=== PATIENT | female | born 1985 | race Caucasian/White ===

== ENCOUNTER 2016-08-03 12:40 | Inpatient (IN) | payer MEDICAID ==
[~2016-08-03] VITALS: Ht 165.1 cm; Wt 79.0 kg
[~2016-08-03 12:40] MED LIST: KETOROLAC TROMETHAMINE 60 MG/2 ML (IM) VIAL IM ONE; LACTATED RINGER'S 1000 ML INJ 1,000 ML IV ONE; NEOSTIGMINE 3 MG/3 ML SYR IV ONE; ONDANSETRON HCL 4 MG/2 ML VIAL IV PUSH ONE; PROPOFOL 200 MG/20 ML AMP IV ONE
[2016-08-03 12:42] VITALS: BP 133/81; PULSE 108; RESP 17; TEMP 99.5; O2SAT 97
[2016-08-03] MEDS ORDERED: SODIUM CHLOR 0.9% 1000 ML INJ 1,000 ML IV SCH (12:52)
--- NOTE | 2016-08-03 12:55 | PD ---
HPI Chief Complaint: Oral / Dental Pain or Problem Time Seen by Provider: 12:55 Travel History International Travel<30 days: No Contact w/Intl Traveler<30days: No Traveled to known affect area: No History of Present Illness HPI 30-year-old female presents to the emergency department for evaluation of swelling and pain to left lower jaw for one day. The patient states that last week she had a dental abscess from a cracked tooth in her left lower molars and was placed on amoxicillin. States that the swelling had improved with the antibiotics until this morning when she woke up the entire left side of her jaw and underneath her chin was swollen and painful. States that she had an appointment with her dentist today to have the tooth removed and when she went to the dentist she was told that she needed immediate oral surgery and to come to the emergency department. The patient denies any fever, chills, nausea, vomiting, difficulty swallowing, difficulty breathing. She states she is having trouble opening her mouth. Denies , she has a Mirena. No other complaints. PFSH Past Medical History Medical History: Denies Significant Hx Diminished Hearing: No Tetanus Vaccination: Unknown Influenza Vaccination: No ?: Not LMP: 8 YRS AGO Past Surgical History Surgical History: No Previous Surgery Social History Alcohol Use: No Tobacco Use: No Substance Use: No Allergies-Medications (Allergen,Severity, Reaction): Coded Allergies: No Known Allergies (Unverified , 08/03/16) Reported Meds & Prescriptions Reported Meds & Active Scripts Active No Active Prescriptions or Reported Medications Review of Systems Except as stated in HPI: all other systems reviewed are Neg Physical Exam Narrative GENERAL: Well-nourished and well-developed pleasant female patient in no acute distress. SKIN: Warm and dry. HEAD: Normocephalic and atraumatic. EYES: No injection, drainage, or hyphema noted. PERRLA. EOMI. ENT: No nasal drainage noted. Oropharynx is clear, no excessive drooling, airway is patent. DENTAL: Dental caries to tooth #19. There is significant submandibular and sublingual swelling on the left side and some swelling to the submental space. Positive trismus. NECK: Supple and the trachea is midline. CARDIOVASCULAR: Regular rate and rhythm. RESPIRATORY: Breath sounds are equal bilaterally with no accessory muscle use, wheezing, rhonchi, or crackles. GASTROINTESTINAL: Abdomen is soft, non-tender, and nondistended. MUSCULOSKELETAL: No obvious deformities, swelling, cyanosis, or ecchymosis is present throughout the upper and lower extremities. Patient has full range of motion without any signs of neurovascular compromise. NEUROLOGICAL: Awake, alert, and oriented. Normal speech and gait. Cranial nerves are grossly intact. Data Data Last Documented VS Vital Signs Date Time Temp Pulse Resp B/P Pulse Ox O2 Delivery O2 Flow Rate FiO2 08/03/16 14:19 88 14 114/65 97 Room Air 08/03/16 12:42 99.5 Orders Complete Blood Count With Diff (08/03/16 12:52) Comprehensive Metabolic Panel (08/03/16 12:52) Lactic Acid (08/03/16 12:52) Prothrombin Time / Inr (Pt) (08/03/16 12:52) Act Partial Throm Time (Ptt) (08/03/16 12:52) Iv Access Insert/Monitor (08/03/16 12:52) Ecg Monitoring (08/03/16 12:52) Oximetry (08/03/16 12:52) Morphine Inj (Morphine Inj) (08/03/16 13:00) Ondansetron Inj (Zofran Inj) (08/03/16 13:00) Sodium Chlor 0.9% 1000 Ml Inj (Ns 1000 M (08/03/16 12:52) Sodium Chloride 0.9% Flush (Ns Flush) (08/03/16 13:00) Ed Urine Pregnancytest Poc (08/03/16 12:52) Ct Soft Tiss Neck W Iv Cont (08/03/16 12:52) Clindamycin Inj (Cleocin Inj) (08/03/16 13:00) Dexamethasone Inj (Decadron Inj) (08/03/16 13:00) C-Reactive Protein (Crp) (08/03/16 12:55) Westergren Sedimentation Rate (08/03/16 12:55) Blood Culture (08/03/16 13:06) Iohexol 350 Inj (Omnipaque 350 Inj) (08/03/16 15:28) NPO (08/03/16 16:12) Admit Order (Ed Use Only) (08/03/16 16:25) Labs Laboratory Tests Test 08/03/16 13:00 White Blood Count 18.5 TH/MM3 Red Blood Count 5.05 MIL/MM3 Hemoglobin 14.8 GM/DL Hematocrit 42.7 % Mean Corpuscular Volume 84.5 FL Mean Corpuscular Hemoglobin 29.2 PG Mean Corpuscular Hemoglobin 34.6 % Concent Red Cell Distribution Width 12.5 % Platelet Count 354 TH/MM3 Mean Platelet Volume 7.5 FL Neutrophils (%) (Auto) 84.2 % Lymphocytes (%) (Auto) 9.4 % Monocytes (%) (Auto) 4.6 % Eosinophils (%) (Auto) 1.4 % Basophils (%) (Auto) 0.4 % Neutrophils # (Auto) 15.6 TH/MM3 Lymphocytes # (Auto) 1.7 TH/MM3 Monocytes # (Auto) 0.9 TH/MM3 Eosinophils # (Auto) 0.3 TH/MM3 Basophils # (Auto) 0.1 TH/MM3 CBC Comment DIFF FINAL Differential Comment Erythrocyte Sedimentation Rate 3 mm/hr Prothrombin Time 11.7 SEC Prothromb Time International 1.1 RATIO Ratio Activated Partial 30.8 SEC Thromboplast Time Sodium Level 137 MEQ/L Potassium Level 4.1 MEQ/L Chloride Level 105 MEQ/L Carbon Dioxide Level 21.5 MEQ/L Anion Gap 11 MEQ/L Blood Urea Nitrogen 8 MG/DL Creatinine 0.65 MG/DL Estimat Glomerular Filtration 108 ML/MIN Rate Random Glucose 83 MG/DL Lactic Acid Level 0.8 mmol/L Calcium Level 9.3 MG/DL Total Bilirubin 0.8 MG/DL Aspartate Amino Transf 17 U/L (AST/SGOT) Alanine Aminotransferase 26 U/L (ALT/SGPT) Alkaline Phosphatase 78 U/L C-Reactive Protein 14.00 MG/DL Total Protein 8.4 GM/DL Albumin 4.1 GM/DL [facility] Medical Decision Making Medical Screen Exam Complete: Yes Emergency Medical Condition: Yes Differential Diagnosis Ludwigs angina versus dental abscess versus dental caries Narrative Course 30-year-old female presents to the emergency department for evaluation of dental infection and facial swelling. Patient's temperature is 99.5F and she is slightly tachycardic with a heart rate of 108 bpm. Otherwise vital signs within normal limits. On physical examination she has what appears to be early Fermin angina, she is not having any airway compromise at this time. IV access is obtained, labs have been drawn and sent. CT soft tissue of the neck has been ordered and is pending. Patient is administered IV fluids, Decadron 10 mg IV, and the mycin 600 mg IV, morphine 4 mg IV and Zofran 4 mg IV. CBC shows elevated white blood cell count of 18.5, otherwise unremarkable. CMP is unremarkable. Sedimentation rate is unremarkable. Lactic acid is unremarkable. CRP is elevated at 14.00. Coags are unremarkable. CT soft tissue of the neck with contrast shows soft tissue swelling in the left submandibular region without an obvious abscess. This does track along the lingual airspace and involves both sides of the mandible. I spoke with maxillofacial surgeon on-call who requested patient be kept nothing by mouth and admitted to medicine service. I discussed the case with my attending physician Dr. Rios who is aware of the patients history, physical examination findings, and treatment plan. Physician Communication Physician Communication I spoke with Dr. Mccann maxillofacial surgeon who requests patient be kept nothing by mouth and admitted to medicine service. I spoke with Dr. Lincoln [facility] who agrees to admit the patient to her service. Diagnosis Primary Impression: Fermin's angina Admitting Information Admitting Physician Requests: Admit Scripts No Active Prescriptions or Reported Meds Ophelia Fisher Aug 03, 2016 12:55
[2016-08-03] MEDS ORDERED: DEXAMETHASONE SOD PHOS 20 MG/5 ML VIAL IV PUSH ONE (13:00)
[2016-08-03] MEDS ORDERED: ONDANSETRON HCL 4 MG/2 ML VIAL IVP ONE (13:00)
[2016-08-03] MEDS ORDERED: MORPHINE SULFATE 4 MG/ML INJ IV PUSH ONE (13:00)
[2016-08-03] MEDS ORDERED: SODIUM CHLORIDE 0.9% FLUSH 10 ML FLUSH IV FLUSH PRN ×2 (13:00→22:45)
[2016-08-03] MEDS ORDERED: CLINDAMYCIN INJ 600 MG in SODIUM CHLORIDE 0.9% INJ 100 ML IV ONE (13:00)
[2016-08-03 13:04] VITALS: O2SAT 98
[2016-08-03 13:37] LABS: AUTOMATED NEUTROPHIL # 15.6 TH/MM3 (1.8-7.7); BASOPHIL # 0.1 TH/MM3 (0-0.2); BASOPHIL % 0.4 % (0.0-2.0); EOSINOPHIL # 0.3 TH/MM3 (0-0.4); EOSINOPHIL % 1.4 % (0.0-4.0); HEMATOCRIT 42.7 % (35.0-46.0); HEMO FLAGS DIFF FINAL; LYMPH % 9.4 % (9.0-44.0); LYMPHOCYTE # 1.7 TH/MM3 (1.0-4.8); MEAN CELL VOLUME 84.5 FL (80.0-100.0); MEAN CORPUSCULAR HEMOGLOBIN 29.2 PG (27.0-34.0); MEAN CORPUSCULAR HGB CONC 34.6 % (32.0-36.0); MONO % 4.6 % (0.0-8.0); NEUT % 84.2 % (16.0-70.0); PLATELET COUNT 354 TH/MM3 (150-450); RED BLOOD COUNT 5.05 MIL/MM3 (4.00-5.30); RED CELL DISTRIBUTION WIDTH 12.5 % (11.6-17.2); WHITE BLOOD COUNT 18.5 TH/MM3 (4.0-11.0)
[2016-08-03 13:48] LABS: APTT (PATIENT) 30.8 SEC (24.3-30.1); INTERNATIONAL NORMALIZED RATIO 1.1 RATIO; PROTHROMBIN TIME - PATIENT 11.7 SEC (9.8-11.6)
[2016-08-03 14:00] LABS: ANION GAP 11 MEQ/L (5-15); AST (GOT) 17 U/L (15-37); BICARBONATE 21.5 MEQ/L (21.0-32.0); BLOOD UREA NITROGEN 8 MG/DL (7-18); CHLORIDE 105 MEQ/L (98-107); GLOMERULAR FILTRATION RATE 108 ML/MIN (>89); POTASSIUM 4.1 MEQ/L (3.5-5.1); SODIUM (NA) 137 MEQ/L (136-145)
[2016-08-03 14:04] LABS: ALKALINE PHOSPHATASE 78 U/L (45-117); ALT (GPT) 26 U/L (10-53); TOTAL BILIRUBIN ADULT 0.8 MG/DL (0.2-1.0)
[2016-08-03 14:19] VITALS: BP 114/65; PULSE 88; RESP 14; O2SAT 97
[2016-08-03] MEDS ORDERED: IOHEXOL 350 MG/ML 10 ML VIAL (for RAD DIAG) IV ONE (15:28)
--- NOTE | 2016-08-03 15:46 | RADRPT ---
EXAM DATE/TIME: 08/03/2016 14:39 [place] COMPARISON: No previous studies available for comparison. INDICATIONS : Left neck swelling. IV CONTRAST: 100 cc Omnipaque 350 (iohexol) IV RADIATION DOSE: 12.42 CTDIvol (mGy) MEDICAL HISTORY : None SURGICAL HISTORY : None. ENCOUNTER: Initial ACUITY: 1 day PAIN SCALE: 4/10 LOCATION: Left neck TECHNIQUE: Volumetric scanning of the neck was performed. Using automated exposure control and adjustment of th e mA and/or kV according to patient size, radiation dose was kept as low as reasonably achievable to obtain optimal diagnostic quality images. DICOM format image data is available electronically for r eview and comparison. FINDINGS: There is soft tissue swelling in the left submandibular region. Submandibular gland is prominent wit h marked induration around the gland and along the undersurface of the mandible that would be consistent with an inflammatory process without abscess. There are nonspecific submental lymph nodes identified. The l argest of these measures 1.2 cm. There is no fluid evident to suggest an abscess. I do not see any calcifications to suggest a stone. I do not see an obvious dental abscess. Correlation is suggested. Submandibular swelling associated with what looks like the submandibular gland and its duct with nons pecific adenopathy present. This does track along the lingual airspace and involves both sides of the mandible. CONCLUSION: Inflammatory changes on the left as described above. Site of origin may be the submandibular gland. I do not see an obvious dental abscess. Amor Doherty MD FACR on August 03, 2016 at 15:35 Board Certified Radiologist. This report was verified electronically.
[2016-08-03 16:39] VITALS: BP 116/78; PULSE 85; RESP 14; TEMP 99.2; O2SAT 97
--- NOTE | 2016-08-03 17:09 | HHI.HP ---
HPI [facility] Primary Care Physician No Primary Care Physician Admission Diagnosis Fermin's Angina Diagnoses: Chief Complaint: Left jaw pain Travel History International Travel<30 Days: No Contact w/Intl Traveler <30 Da: No Traveled to Known Affected Are: No Sepsis Criteria SIRS Criteria (2 or more): Temp > 100.9 or < 96.8, Heart rate over 90, WBC > 11210, < 4000 or > 10% bands Sepsis Criteria (SIRS+source): Infect source susp/known Criteria Outcome: Meets sepsis criteria History of Present Illness Patient is a very pleasant 30-year-old female who denies any chronic medical conditions who about 10 days prior to admission complained of left lower jaw pain associated with swelling and some low-grade fever. Patient was seen in the emergency room where she was prescribed antibiotic steroids and some pain meds and was discharged to follow-up with a dentist. She was seen by a dentist and was prescribed pain medications and the plan was to do dental extraction of tooth #19. T Patient and mom states rapid increasing in swelling and pain progressively improved not barely can open mouth. Patient denies any fever but does complain of some feverish sensation and chills. On follow-up today with worsening exam by the dentist and was sent here for evaluation by oral maxillofacial surgery and hence this admission. Review of Systems Constitutional: DENIES: Fever, Weight loss, Chills, Change in appetite Eyes: DENIES: Blurred vision, Double Vision Ears, nose, mouth, throat: DENIES: Tinnitus, Ear Pain, Epistaxis, Odynophagia Respiratory: DENIES: Cough, Hemoptysis, Sputum production, Shortness of breath Cardiovascular: DENIES: Chest pain, Palpitations, Dyspnea on Exertion, Lower Extremity Edema, Orthopnea Gastrointestinal: DENIES: Black stools, Bloody stools, Difficulty Swallowing, Anorexia Genitourinary: DENIES: Urgency, Hematuria, Vaginal discharge Musculoskeletal: DENIES: Joint pain, Stiffness Integumentary: DENIES: Pruritus Hematologic/lymphatic: DENIES: Bruising Immunologic/allergic: DENIES: Urticaria Neurologic: DENIES: Headache, Speech Problems, Tremor Psychiatric: DENIES: Suicidal Ideation, Homicidal Ideation Past Family Social History Past Medical History No significant past medical history Past Surgical History No major surgeries Reported Medications Amoxicillin twice a Lortab when necessary for pain Allergies: Coded Allergies: No Known Allergies (Unverified , 08/03/16) Family History Noncontributory Social History Denies smoking alcohol or substance abuse Physical Exam Vital Signs Vital Signs Date Time Temp Pulse Resp B/P Pulse Ox O2 Delivery O2 Flow Rate FiO2 08/03/16 16:39 99.2 85 14 116/78 97 Room Air 08/03/16 14:19 88 14 114/65 97 Room Air 08/03/16 14:17 14 08/03/16 13:04 98 Room Air 08/03/16 12:42 99.5 108 17 133/81 97 Physical Exam GENERAL: This is a well-nourished, well-developed patient, in no apparent distress. SKIN: No rashes, ecchymoses or lesions. Cool and dry. HEAD: Atraumatic. Normocephalic. No temporal or scalp tenderness. EYES: Pupils equal round and reactive. Extraocular motions intact. No scleral icterus. No injection or drainage. ENT: Nose without bleeding, marked swelling and infiltration of the left mandibular to submandibular area. No left tragal tenderness. NECK: Trachea midline. No JVD. Positive posterior cervical small lymphadenopathies. Supple, nontender, no meningeal signs. CARDIOVASCULAR: Regular rhythm without murmurs, gallops, or rubs. RESPIRATORY: Clear to auscultation. Breath sounds equal bilaterally. No wheezes , rales, or rhonchi. GASTROINTESTINAL: Abdomen soft, non-tender, nondistended. No hepato-splenomegaly , or palpable masses. No guarding. MUSCULOSKELETAL: Extremities without clubbing, cyanosis, or edema. No joint tenderness, effusion, or edema noted. No calf tenderness. Negative Homans sign bilaterally. NEUROLOGICAL: Awake and alert. Cranial nerves II through XII intact. Motor and sensory grossly within normal limits. Five out of 5 muscle strength in all muscle groups. Normal speech. Laboratory Laboratory Tests Test 08/03/16 13:00 White Blood Count 18.5 Red Blood Count 5.05 Hemoglobin 14.8 Hematocrit 42.7 Mean Corpuscular Volume 84.5 Mean Corpuscular Hemoglobin 29.2 Mean Corpuscular Hemoglobin 34.6 Concent Red Cell Distribution Width 12.5 Platelet Count 354 Mean Platelet Volume 7.5 Neutrophils (%) (Auto) 84.2 Lymphocytes (%) (Auto) 9.4 Monocytes (%) (Auto) 4.6 Eosinophils (%) (Auto) 1.4 Basophils (%) (Auto) 0.4 Neutrophils # (Auto) 15.6 Lymphocytes # (Auto) 1.7 Monocytes # (Auto) 0.9 Eosinophils # (Auto) 0.3 Basophils # (Auto) 0.1 CBC Comment DIFF FINAL Differential Comment Erythrocyte Sedimentation Rate 3 Prothrombin Time 11.7 Prothromb Time International 1.1 Ratio Activated Partial 30.8 Thromboplast Time Sodium Level 137 Potassium Level 4.1 Chloride Level 105 Carbon Dioxide Level 21.5 Anion Gap 11 Blood Urea Nitrogen 8 Creatinine 0.65 Estimat Glomerular Filtration 108 Rate Random Glucose 83 Lactic Acid Level 0.8 Calcium Level 9.3 Total Bilirubin 0.8 Aspartate Amino Transf 17 (AST/SGOT) Alanine Aminotransferase 26 (ALT/SGPT) Alkaline Phosphatase 78 C-Reactive Protein 14.00 Total Protein 8.4 Albumin 4.1 Date/Time Procedure Status Source Growth 08/03/16 13:15 Aerobic Blood Culture Received Blood Peripheral Pending 08/03/16 13:15 Anaerobic Blood Culture Received Blood Peripheral Pending Result Diagram: 08/03/16 1300 08/03/16 1300 Imaging Last Impressions Neck CT 08/03/16 1252 Signed Impressions: Service Date/Time: Wednesday, August 03, 2016 14:39 - CONCLUSION: Inflammatory changes on the left as described above. Site of origin may be the submandibular gland. I do not see an obvious dental abscess. Amor Doherty MD FACR Septic Shock Reassessment Heart: Regular rate and rhythm Lungs: Clear Skin: Warm Peripheral Pulses: Bounding Right Radial Bounding Left Radial Bounding Right Popliteal Bounding Left Popliteal Bounding Right Dorsalis Pedis Bounding Left Dorsalis Pedis Bounding Right Posterior Tibial Bounding Left Posterior Tibial Capillary Refill: Brisk Assessment and Plan Assessment and Plan 30-year-old female presenting with tachycardia and low-grade fever and leukocytosis Sepsis secondary to left mandibular/submandibular abscess secondary to infected tooth #19 Nothing by mouth. Start IV fluids Oral maxillofacial surgery consulted- for OR now Started on IV clindamycin. 600 mg IV q 8 received x 1 IV styeroids. Will defer to OMFS for further steroids post op will need ICU admission after surgery for close monitoring. IV morphine when necessary for pain. d/w patient, Mom and Dr. Mccann Discussed Condition With Patient and mother at bedside Physician Certification 2 Midnight Certification Type: Admission for Inpatient Services Order for Inpatient Services The services are ordered in accordance with Medicare regulations or non- Medicare payer requirements, as applicable. In the case of services not specified as inpatient-only, they are appropriately provided as inpatient services in accordance with the 2-midnight benchmark. Estimated LOS (days): 3 days is the estimated time the patient will need to remain in the hospital, assuming treatment plan goals are met and no additional complications. Post-Hospital Plan: Home Luke Lincoln MD Aug 03, 2016 17:09
[2016-08-03] MEDS ORDERED: MICROFIBRILLAR COLLAGEN HEMOSTAT 1 GM PKT ONE (17:26)
[2016-08-03] MEDS ORDERED: CHLORHEXIDINE GLUCONATE 0.12% 15 ML CUP ONE (17:26)
[2016-08-03] MEDS ORDERED: BACITRACIN TOP OINT 15 GM TUBE ONE (17:26)
[2016-08-03] MEDS ORDERED: LIDOCAINE 1%/EPINEPHrine 1:100,000 SOLN 20 ML VIAL ONE (17:32)
[2016-08-03] MEDS ORDERED: SUGAMMADEX SODIUM 200 MG/2 ML VIAL IV PUSH ONE ×2 (18:32)
[2016-08-03] MEDS ORDERED: MIDAZOLAM HCL 2 MG/2 ML VIAL ONE (18:55)
[2016-08-03] MEDS ORDERED: fentaNYL CITRATE 250 MCG/5 ML AMP ONE (18:55)
[2016-08-03] MEDS ORDERED: BUPIVACAINE/EPINEPHRINE 0.5% PF 10 ML VIAL INFIL ONE (19:35)
--- NOTE | 2016-08-03 20:07 | HHI.PR ---
Immediate Post Op Note Procedure Date: Aug 03, 2016 Pre Op Diagnosis: decayed tooth #19 left neck multispace infection/abscess, submandibular, masseteric and sub lingual Post Op Diagnosis: sangita Surgeon: Hema Mccann Animal Doctor(s): keegan mcgill Procedure: extraction tooth #19 I&D left neck multi space infection exam under anesthesia Complications: none Specimen(s) removed: pus - sent for micro Estimated blood loss: 20 cc Anesthesia: General, Local (2%lidocaine with 1:100,000 epi 6cc 0.5% marcaine with 1:200,000 epi 3cc) Drains: Itz, Other (1/4 inch itz x4 and #12 red prasanna drain x 1) Patient to: PACU Patient Condition: Good Date/Time of Procedure: SEE SURGICAL CARE RECORD Hema Mccann DMD Aug 03, 2016 20:07
[2016-08-03] MEDS: DEXT 5%-NACL 0.9% 1000 ML INJ 1,000 ML IV SCH (20:15)
[2016-08-03] MEDS ORDERED: methylPREDNISolone SOD SUCC 125 MG/2 ML VIAL ONE (20:24)
[2016-08-03] MEDS ORDERED: DO NOT ADM ANY ANTICOAGULANT DRUGS PRN (21:30)
[2016-08-03] MEDS: CLINDAMYCIN INJ 600 MG in SODIUM CHLORIDE 0.9% INJ 100 ML IV SCH (21:49)
[2016-08-03 22:00] VITALS: BP 127/52; PULSE 96; RESP 20; TEMP 98.2; O2SAT 97
--- NOTE | 2016-08-03 22:38 | PD.CONS ---
[facility] Service Critical Care Medicine Consult Requested By Dr. Mccann Reason for Consult Critical care management Primary Care Physician No Primary Care Physician History of Present Illness This is a 30-year-old female. Date of admission 08/03/2016. Date of consultation 28/07/2016. Past medical history is significant for no past medical history. She does attend a history of left lower jaw pain associated with edema fevers. She relates in the ED prescribed antibiotic, steroids and narcotics discharged to follow dense. She seen by alli was prescribed pain medications as duodenal obstruction 2 through 19. She had increasing swelling in Percocet pain and was able to move mouth/trismus. Seen by Issa a day and was sent to the ED for evaluation by oral maxillofacial surgery. CT neck reveals submandibular abscess tracking along the mandible. Today, patient had an extraction tooth #19, I&D left neck with examination under anesthesia with placement of one quarter inch [place] drain #4 and #12 red rubber drain [address] Mccann. Estimated blood loss 20 cc. She is currently awake and alert on 2 L nasal cannula in no acute distress. Review of Systems Constitutional: COMPLAINS OF: Fatigue, Fever, DENIES: Weight gain, Weight loss Endocrine: DENIES: Polydipsia, Polyuria Eyes: DENIES: Blurred vision, Double Vision Ears, nose, mouth, throat: COMPLAINS OF: Oral lesions, Throat pain, Toothache Respiratory: DENIES: Apneas, Cough Cardiovascular: DENIES: Chest pain Gastrointestinal: DENIES: Abdominal pain, Nausea, Vomiting Genitourinary: DENIES: Urgency Musculoskeletal: DENIES: Back pain, Neck pain Integumentary: DENIES: Rash Hematologic/lymphatic: DENIES: Bruising Immunologic/allergic: DENIES: Eczema Neurologic: DENIES: Headache Psychiatric: DENIES: Confusion Past Family Social History Allergies: Coded Allergies: No Known Allergies (Unverified , 08/03/16) Past Medical History Negative Past Surgical History None Reported Medications Amoxicillin 875 mg by mouth twice a day Lortabs by mouth as needed Active Ordered Medications Reviewed in EMR Family History Mother is in good health. RN at [employer]. Social History No tobacco, alcohol or IV drug use. Physical Exam Vital Signs Vital Signs Date Time Temp Pulse Resp B/P Pulse Ox O2 Delivery O2 Flow Rate FiO2 08/03/16 21:00 98.4 93 13 136/88 96 Room Air 08/03/16 20:30 99.0 91 13 135/88 98 Room Air 08/03/16 20:15 98 18 139/92 98 Nasal Cannula 2 08/03/16 20:00 111 16 143/92 99 Simple Mask 8 08/03/16 19:59 98.6 112 15 139/92 99 Simple Mask 8 08/03/16 16:39 99.2 85 14 116/78 97 Room Air 08/03/16 14:19 88 14 114/65 97 Room Air 08/03/16 14:17 14 08/03/16 13:04 98 Room Air 08/03/16 12:42 99.5 108 17 133/81 97 Physical Exam GENERAL: 30-year-old female resting in bed in no acute distress SKIN: Warm and dry. No rash HEAD: Atraumatic. Normocephalic. EYES: Pupils equal and round about 3 mm bilaterally and reactive. No scleral icterus. No injection or drainage. ENT: No nasal bleeding or discharge. Mucous membranes pink and moist. Itz drains and 1 red rubber drain noted in mouth left NECK: Trachea midline. No JVD. Kerlix dressing place with decreasing edema/ submandibular region CARDIOVASCULAR: Regular rate and rhythm. S1, S2 no S4. RESPIRATORY: Clear to auscultation. Breath sounds equal bilaterally. GASTROINTESTINAL: Abdomen soft, non-tender, nondistended. Hypoactive bowel sounds MUSCULOSKELETAL: Extremities without significant peripheral edema. No obvious deformities. NEUROLOGICAL: Awake and alert. No obvious cranial nerve deficits. Motor grossly within normal limits. Five out of 5 muscle strength in the arms and legs. Normal speech. PSYCHIATRIC: Appropriate mood and affect; insight and judgment normal. Laboratory Laboratory Tests Test 08/03/16 13:00 White Blood Count 18.5 Red Blood Count 5.05 Hemoglobin 14.8 Hematocrit 42.7 Mean Corpuscular Volume 84.5 Mean Corpuscular Hemoglobin 29.2 Mean Corpuscular Hemoglobin 34.6 Concent Red Cell Distribution Width 12.5 Platelet Count 354 Mean Platelet Volume 7.5 Neutrophils (%) (Auto) 84.2 Lymphocytes (%) (Auto) 9.4 Monocytes (%) (Auto) 4.6 Eosinophils (%) (Auto) 1.4 Basophils (%) (Auto) 0.4 Neutrophils # (Auto) 15.6 Lymphocytes # (Auto) 1.7 Monocytes # (Auto) 0.9 Eosinophils # (Auto) 0.3 Basophils # (Auto) 0.1 CBC Comment DIFF FINAL Differential Comment Erythrocyte Sedimentation Rate 3 Prothrombin Time 11.7 Prothromb Time International 1.1 Ratio Activated Partial 30.8 Thromboplast Time Sodium Level 137 Potassium Level 4.1 Chloride Level 105 Carbon Dioxide Level 21.5 Anion Gap 11 Blood Urea Nitrogen 8 Creatinine 0.65 Estimat Glomerular Filtration 108 Rate Random Glucose 83 Lactic Acid Level 0.8 Calcium Level 9.3 Total Bilirubin 0.8 Aspartate Amino Transf 17 (AST/SGOT) Alanine Aminotransferase 26 (ALT/SGPT) Alkaline Phosphatase 78 C-Reactive Protein 14.00 Total Protein 8.4 Albumin 4.1 Date/Time Procedure Status Source Growth 08/03/16 19:35 Gram Stain Received Wound Mouth Pending 08/03/16 19:35 Wound Culture Received Wound Mouth Pending 08/03/16 19:35 Fungal Smear Received Wound Mouth Pending 08/03/16 19:35 Fungal Culture Received Wound Mouth Pending 08/03/16 19:35 Acid Fast Stain Received Wound Mouth Pending 08/03/16 19:35 Mycobacterial Culture Received Wound Mouth Pending 08/03/16 13:15 Aerobic Blood Culture Received Blood Peripheral Pending 08/03/16 13:15 Anaerobic Blood Culture Received Blood Peripheral Pending Result Diagram: 08/03/16 1300 08/03/16 1300 Imaging Last Impressions Neck CT 08/03/16 1252 Signed Impressions: Service Date/Time: Wednesday, August 03, 2016 14:39 - CONCLUSION: Inflammatory changes on the left as described above. Site of origin may be the submandibular gland. I do not see an obvious dental abscess. Amor Doherty MD FACR Assessment and Plan Assessment and Plan Neuro/Psych: Postoperative pain management [place] 7.5/3/25/15 cc every 4 hours pain 1-5 Morphine 2 mg IV every 4 hours when necessary pain 6-10 CV: Currently on D5 normal saline at 100 cc an hour. Not requiring vasopressors and/or anti-hypertensives Resp: Nasal cannula to maintain saturations greater than equal to 92% Incentive spirometry while awake GI: On clear liquid diet. Advance per surgery Protonix for GI prophylaxis Candice-Colace for bowel regimen : Remove [place] catheter Endo: Sliding-scale insulin with Accu-Cheks to maintain euglycemia/low regimen Renal: Creatinine currently within normal limits Accurate I's and O's Monitor urine output Heme: Leukocytosis Follow CBC daily. Monitor trends ID: Status post multiple culture 08/03. Continue clindamycin 600 mg IV every 8 hours day #2 MSK: Postop day #0 traction of decayed tooth #19 left neck I&D multispace infection/ abscess, submandibular, masseteric and sub lingual Management per Dr. Mccann. Currently with 4 [place] drains and one red rubber drain. Out of bed as tolerated FEN: Replace electrolytes as clinically indicated Access - Utilize peripheral IV. Central line if indicated Prophylaxis - GI - Protonix - DVT - SCD/pharmacological prophylaxis when okay with OMFS Level II consult Code Status Full code Discussed Condition With Patient. Mother. Care plan discussed all questions answered. Gunnar English MD Aug 03, 2016 22:38
[2016-08-03] MEDS ORDERED: SENNOSIDES 8.6 MG TAB PO PRN (22:45)
[2016-08-03] MEDS ORDERED: RESP: ALBUTEROL 2.5 MG/3 ML NEB (PRN) INH (22:45)
[2016-08-03] MEDS ORDERED: BISACODYL 10 MG SUPP RECTAL PRN (22:45)
[2016-08-03] MEDS ORDERED: CHLORHEXIDINE GLUCONATE 2 % 1 PACK (2 CLOTHS) TOP PRN (22:45)
[2016-08-03] MEDS ORDERED: MISCELLANEOUS NURSING INFORMATION XX SCH (22:45)
[2016-08-03] MEDS ORDERED: MAGNESIUM HYDROXIDE SUSP 30 ML CUP PO PRN (22:45)
[2016-08-03] MEDS ORDERED: LACTULOSE SYRUP 20 GM/30 ML CUP PO PRN (22:45)
[2016-08-03 23:00] VITALS: PULSE 97
[2016-08-03] MEDS: MORPHINE SULFATE 4 MG/ML INJ IV PUSH PRN (23:49)
[2016-08-04] VITALS (8 sets, daily range): BP systolic 104–131; BP diastolic 64–84; PULSE 64–96; RESP 12–20; TEMP 96.6–98.6; O2SAT 95–99
[2016-08-04] MEDS ORDERED: methylPREDNISolone SOD SUCC 125 MG/2 ML VIAL IV ONE (02:00)
[2016-08-04 04:51] LABS: AUTOMATED NEUTROPHIL # 10.9 TH/MM3 (1.8-7.7); BASOPHIL % 0.1 % (0.0-2.0); HEMATOCRIT 36.6 % (35.0-46.0); HEMO FLAGS DIFF FINAL; LYMPH % 6.2 % (9.0-44.0); LYMPHOCYTE # 0.7 TH/MM3 (1.0-4.8); MEAN CORPUSCULAR HEMOGLOBIN 29.5 PG (27.0-34.0); MEAN CORPUSCULAR HGB CONC 34.7 % (32.0-36.0); MONO % 1.7 % (0.0-8.0); PLATELET COUNT 296 TH/MM3 (150-450); RED CELL DISTRIBUTION WIDTH 12.3 % (11.6-17.2); WHITE BLOOD COUNT 11.9 TH/MM3 (4.0-11.0)
[2016-08-04] MEDS: CHLORHEXIDINE GLUCONATE 2 % 1 PACK (2 CLOTHS) TOP SCH (05:04)
[2016-08-04] MEDS: DEXT 5%-NACL 0.9% 1000 ML INJ 1,000 ML IV SCH ×2 (05:06→12:32)
[2016-08-04] MEDS: CLINDAMYCIN INJ 600 MG in SODIUM CHLORIDE 0.9% INJ 100 ML IV SCH ×3 (05:07→20:32)
[2016-08-04 05:41] LABS: BICARBONATE 24.7 MEQ/L (21.0-32.0); MAGNESIUM 2.3 MG/DL (1.5-2.5); POTASSIUM 3.9 MEQ/L (3.5-5.1)
--- NOTE | 2016-08-04 07:43 | MB ---
cc: KADE MCCANN DMD [facility], DATE OF CONSULTATION 08/03/2016 REASON FOR CONSULTATION Infected tooth, left neck abscess. This is a 30-year female who for the past 10 days was having a discomfort on the left lower jaw. She has discomfort and pain and broken tooth number 19. She was seen in the ER several days ago and then discharged with antibiotics, steroids. She did follow up with a dentist, Dr. Mancini and again prescribed pain meds and the plan was to do the extractions tomorrow. She suddenly developed swelling when she woke up this morning. She went to the dentist and they sent her to the ER. Denies any fever, chills, nausea, vomiting, shortness of breath or difficulty breathing or any difficulty swallowing. She does have difficulty opening her mouth and painful. PAST MEDICAL HISTORY Denied MEDICATIONS Denied ALLERGIES Denied SOCIAL HISTORY Denied FAMILY HISTORY Denied PHYSICAL EXAM VITAL SIGNS: Temperature 99.2, pulse is 85, respiration 14, blood pressure is 160/78 with oxygen saturation of 97% NECK: Examination shows a fullness and edema on the left side of the neck extending from the left submandibular region and extending to the left sublingual region. Trachea is midline. It is hard and firm on the left-hand side. Tenderness to palpation that is noted on the left side of the neck. The angle of the mandible is palpable. Intraorally, she has trismus and barely able to get two fingerbreadths into her mouth. Tooth #19 is broken that is noted. Some tenderness underneath the left floor of the mouth. There does not appear to be any deviation of the uvula at this time that I can see as my exam is limited. The patient is guarding against pain. No active pus that is noted clinically that I could see. CT scan of the neck shows tooth number 19 that is decayed and broken, also an area of collection that is noted around the mandible left submandibular region. Edema on the left submandibular extending to the left sublingual region. No gross constriction of the airway that is noted. Enlarged nodes also. White count is 18.5, H&H is 14.8 and 42.7 with platelets of 354. PT 11.7, INR is 1.1 with a PTT of 30.8. IMPRESSION AND PLAN This is a 30-year female with longstanding issue with tooth number 19 treated with antibiotics not responding to it now presents with a left neck multi-space infection extending to the left submandibular region masseteric space sublingual region. We will plan to take the patient to the main operating room tonight for extraction of tooth number 19, examination under anesthesia, I&D of the left neck multi-space infection. Benefits, risks, indication of the procedure, procedure in detail and the options of no treatment including alternans were discussed with this patient. The risks are not limited to any postop pain, infection, bleeding, damage to the adjacent soft tissue, hard tissue, anesthesia complications, numbness, recurrence of the infection, further surgeries as required. The patient is aware there is a possibility she may stay intubated overnight. All questions and concerns were addressed. Kade Mccann DMD [facility] /5:19 PM /7:29 AM
--- NOTE | 2016-08-04 07:46 | HHI.PR ---
Subjective Remarks POD 1 s/p extraction of tooth #19 I&D left neck multi space infection/abscess pt seen and examined, nurse at bedside AAOx3, NAD. tolerating po well, ambulating denies f/c/n/v/sob/difficulty breathing/difficulty swallowing reports feeling much better Objective Vital Signs Date Time Temp Pulse Resp B/P Pulse Ox O2 Delivery O2 Flow Rate FiO2 08/04/16 04:00 98.0 64 20 131/84 96 08/04/16 03:47 96 21 08/04/16 00:00 98.6 70 12 110/64 95 08/03/16 23:54 16 08/03/16 23:00 97 08/03/16 22:00 98.2 96 20 127/52 97 08/03/16 21:00 98.4 93 13 136/88 96 Room Air 08/03/16 20:30 99.0 91 13 135/88 98 Room Air 08/03/16 20:15 98 18 139/92 98 Nasal Cannula 2 08/03/16 20:00 111 16 143/92 99 Simple Mask 8 08/03/16 19:59 98.6 112 15 139/92 99 Simple Mask 8 08/03/16 16:39 99.2 85 14 116/78 97 Room Air 08/03/16 14:19 88 14 114/65 97 Room Air 08/03/16 14:17 14 08/03/16 13:04 98 Room Air 08/03/16 12:42 99.5 108 17 133/81 97 I/O 08/03/16 08/03/16 08/03/16 08/04/16 08/04/16 08/04/16 07:00 15:00 23:00 07:00 15:00 23:00 Intake Total 1035 ml 1043 ml Output Total 20 ml Balance 1015 ml 1043 ml Intake Oral 135 ml IV Total 200 ml 1043 ml Other 700 ml Output Urine Total 0 ml Estimated Blood Loss 20 ml Other 0 ml # Voids 1 Result Diagram: 08/04/16 0358 08/04/16 0358 Objective Remarks significant decrease in left neck/facial edema trach midline, neck softer decreased tenderness intraorally, significant increase in mouth opening no elevation fom tongue, no deviation of uvula no pus noted neck drain in place x 3, no drainage noted, dressing in place intraorally [address] afbride, decrease in white count Assessment and Plan Assessment and Plan pod 1 s/p extraction tooth #19 and I&D left neck multi space infection/abscess improved significantly from yesterday continue abx micro pending ok to transfer to regular floor Hema Mccann DMD Aug 04, 2016 07:46
[2016-08-04] MEDS ORDERED: methylPREDNISolone ACETATE 80 MG/ML VIAL IM ONE (08:00)
[2016-08-04] MEDS: CHLORHEXIDINE GLUCONATE 0.12% 15 ML CUP SWISH-SPIT SCH ×2 (09:00→17:32)
[2016-08-04] MEDS: DOCUSATE SODIUM 50 MG/SENNA 8.6 MG TAB PO SCH ×2 (09:00→20:32)
--- NOTE | 2016-08-04 09:22 | HHI.CCPN ---
Subjective Remarks/Hospital Course This is a 30-year-old female. Date of admission 08/03/2016. Date of consultation 28/07/2016. Past medical history is significant for no past medical history. She does attend a history of left lower jaw pain associated with edema fevers. She relates in the ED prescribed antibiotic, steroids and narcotics discharged to follow dense. She seen by alli was prescribed pain medications as duodenal obstruction 2 through 19. She had increasing swelling in Percocet pain and was able to move mouth/trismus. Seen by Issa a day and was sent to the ED for evaluation by oral maxillofacial surgery. CT neck reveals submandibular abscess tracking along the mandible. Today, patient had an extraction tooth #19, I&D left neck with examination under anesthesia with placement of one quarter inch [place] drain #4 and #12 red rubber drain [address] Mccann. Estimated blood loss 20 cc. She is currently awake and alert on 2 L nasal cannula in no acute distress. 08/04: Breathing comfortably. Airway widely patent, no obstruction. Objective Vital Signs Date Time Temp Pulse Resp B/P Pulse Ox O2 Delivery O2 Flow Rate FiO2 08/04/16 08:43 97 08/04/16 04:00 98.0 64 20 131/84 08/04/16 03:47 21 08/03/16 21:00 Room Air 08/03/16 20:15 2 Intake and Output 08/03/16 08/03/16 08/04/16 08:00 16:00 00:00 Intake Total 1035 ml Output Total 20 ml Balance 1015 ml Result Diagram: 08/04/16 0358 08/04/16 0358 Imaging Last Impressions Neck CT 08/03/16 1252 Signed Impressions: Service Date/Time: Wednesday, August 03, 2016 14:39 - CONCLUSION: Inflammatory changes on the left as described above. Site of origin may be the submandibular gland. I do not see an obvious dental abscess. Amor Doherty MD FACR Objective Remarks GENERAL: 30-year-old female. SKIN: Warm and dry. HEAD: Minor facial/mandibular swelling.. Normocephalic. EYES: Pupils equal and round about 2 mm bilaterally and reactive. ENT: No nasal bleeding or discharge. Mucous membranes pink and moist. Itz drain noted in mouth left NECK: Trachea midline. Kerlix dressing place with decreasing edema/ submandibular region. No stridor. CARDIOVASCULAR: Regular rate and rhythm. S1, S2 no S4. No JVD. RESPIRATORY: Clear to auscultation. Breath sounds equal bilaterally. Comfortable. GASTROINTESTINAL: Abdomen soft, non-tender, nondistended. Active bowel sounds MUSCULOSKELETAL: Extremities without significant peripheral edema. No obvious deformities. NEUROLOGICAL: Awake, sleepy. No obvious cranial nerve deficits. Motor grossly within normal limits. Five out of 5 muscle strength in the arms and legs. Normal speech. PSYCHIATRIC: Appropriate mood and affect; insight and judgment normal. A/P Assessment and Plan Neuro/Psych: Postoperative pain management [place] 7.5/3/25/15 cc every 4 hours pain 1-5 Morphine 2 mg IV every 4 hours when necessary pain 6-10 CV: Currently on D5 normal saline at 100 cc an hour. Not requiring vasopressors and/or anti-hypertensives Resp: Nasal cannula to maintain saturations greater than equal to 92% Incentive spirometry while awake GI: On clear liquid diet. Advance per surgery Protonix for GI prophylaxis Candice-Colace for bowel regimen : Remove [place] catheter Endo: Sliding-scale insulin with Accu-Cheks to maintain euglycemia/low regimen Renal: Creatinine currently within normal limits Accurate I's and O's Monitor urine output Heme: Leukocytosis Follow CBC daily. Monitor trends ID: Status post multiple culture 08/03. Continue clindamycin 600 mg IV every 8 hours day #3 MSK: Postop day #1 extraction of decayed tooth #19 left neck I&D multispace infection /abscess, submandibular, masseteric and sub lingual Management per Dr. Mccann. Currently with 4 [place] drains and one red rubber drain. Out of bed as tolerated FEN: Replace electrolytes as clinically indicated Access - Utilize peripheral IV. Prophylaxis - GI - Protonix - DVT - SCD/pharmacological prophylaxis when okay with OMFS Overall impression: Good progress after mandibular abscess drainage. Airway is clear. Talat Dupont MD Aug 04, 2016 09:22
[2016-08-04] MEDS: ONDANSETRON HCL 4 MG/2 ML VIAL IV PRN (10:33)
[2016-08-04] MEDS: SODIUM CHLORIDE 0.9% FLUSH 10 ML FLUSH IV FLUSH SCH ×2 (10:35→20:31)
[2016-08-04] MEDS: ACETAMINOPHEN 325MG/HYDROcodone 7.5MG/15ML UDC PO PRN ×2 (14:01→20:32)
[2016-08-05 00:12] VITALS: BP 105/63; PULSE 70; RESP 18; TEMP 98.1; O2SAT 96
[2016-08-05] MEDS: CHLORHEXIDINE GLUCONATE 2 % 1 PACK (2 CLOTHS) TOP SCH (00:27)
[2016-08-05] MEDS: DEXT 5%-NACL 0.9% 1000 ML INJ 1,000 ML IV SCH ×3 (00:27→19:56)
[2016-08-05] MEDS: ACETAMINOPHEN 325MG/HYDROcodone 7.5MG/15ML UDC PO PRN ×2 (05:01→21:57)
[2016-08-05] MEDS: CLINDAMYCIN INJ 600 MG in SODIUM CHLORIDE 0.9% INJ 100 ML IV SCH ×3 (05:01→21:11)
--- NOTE | 2016-08-05 07:31 | HHI.PR ---
Subjective Remarks POD 2 s/p extraction of tooth #19 I&D left neck multi space infection/abscess pt seen and examined, daughter at bedside AAOx3, NAD. tolerating po well, ambulating denies f/c/n/v/sob/difficulty breathing/difficulty swallowing reports feeling much better Objective Vital Signs Date Time Temp Pulse Resp B/P Pulse Ox O2 Delivery O2 Flow Rate FiO2 08/05/16 00:12 98.1 70 18 105/63 96 08/04/16 20:17 98.1 72 18 113/72 98 08/04/16 16:00 96.6 96 17 108/72 99 08/04/16 10:50 98.6 69 13 104/65 95 08/04/16 08:43 97 08/04/16 08:00 98.0 76 20 114/75 96 I/O 08/04/16 08/04/16 08/04/16 08/05/16 08/05/16 08/05/16 07:00 15:00 23:00 07:00 15:00 23:00 Intake Total 1043 ml 142 ml 927 ml 360 ml Balance 1043 ml 142 ml 927 ml 360 ml Intake Oral 280 ml 360 ml IV Total 1043 ml 142 ml 647 ml # Voids 1 2 2 Result Diagram: 08/04/16 0358 08/04/16 0358 Other Results micro GRAM STAIN Final 08/04/16 MODERATE WBC'S HEAVY MIXED ELLA WITH NO PREDOMINANT MORPHOLOGY WOUND CULTURE Preliminary 08/04/16 RARE GROWTH ALPHA STREPTOCOCCUS SPECIES - FURTHER ID TO FOLLOW NO fungi/ NO AFB Objective Remarks significant continued decrease in left neck/facial edema trach midline, neck softer decreased tenderness intraorally, significant increase in mouth opening no elevation fom tongue, no deviation of uvula no pus noted neck drain in place x 3, no drainage noted, dressing in place intraorally [address] afebrile, decrease in white count Assessment and Plan Assessment and Plan pod 2 s/p extraction tooth #19 and I&D left neck multi space infection/abscess improved significantly from yesterday continue abx micro GRAM STAIN Final 08/04/16912 MODERATE WBC'S HEAVY MIXED ELLA WITH NO PREDOMINANT MORPHOLOGY WOUND CULTURE Preliminary 08/04/16 RARE GROWTH ALPHA STREPTOCOCCUS SPECIES - FURTHER ID TO FOLLOW irrigated drains with saline removed 2 intraoral/2neck [place] drains - 1 red [place] drain remaining. advance to mechanically soft diet, jaw opening exercise shown. Hema Mccann DMD Aug 05, 2016 07:31
[2016-08-05 08:00] VITALS: BP 118/77; PULSE 67; RESP 18; TEMP 97.5; O2SAT 97; O2SAT 98
--- NOTE | 2016-08-05 08:49 | HHI.PR ---
Subjective Remarks feeling clinically better still some pain left submandibular area more jaw opening noted- exercise shown swallowing better Objective Vitals Vital Signs Date Time Temp Pulse Resp B/P Pulse Ox O2 Delivery O2 Flow Rate FiO2 08/05/16 08:00 98 21 08/05/16 00:12 98.1 70 18 105/63 96 08/04/16 20:17 98.1 72 18 113/72 98 08/04/16 16:00 96.6 96 17 108/72 99 08/04/16 10:50 98.6 69 13 104/65 95 I/O 08/04/16 08/04/16 08/04/16 08/05/16 08/05/16 08/05/16 07:00 15:00 23:00 07:00 15:00 23:00 Intake Total 1043 ml 142 ml 927 ml 1225 ml 290 ml Balance 1043 ml 142 ml 927 ml 1225 ml 290 ml Intake Oral 280 ml 360 ml IV Total 1043 ml 142 ml 647 ml 865 ml 290 ml # Voids 1 2 2 Result Diagram: 08/04/16 0358 08/04/16 0358 Imaging Last Impressions Neck CT 08/03/16 1252 Signed Impressions: Service Date/Time: Wednesday, August 03, 2016 14:39 - CONCLUSION: Inflammatory changes on the left as described above. Site of origin may be the submandibular gland. I do not see an obvious dental abscess. Amor Doherty MD FACR Objective Remarks awake and alert still with some induration left submandibular area lungs clear regular rhythm abdomen soft, nontender extremities no edema Procedures 08/04- I and D left submandibular abscess and tooth extraction A/P Assessment and Plan 30-year-old female presenting with tachycardia and low-grade fever and leukocytosis Sepsis secondary to left mandibular/submandibular abscess secondary to infected tooth #19 and I and D Dr. wong ff closely along with us on IV clindamycin. 600 mg IV q 8 prn pain meds diet advance to soft mechanical diet- monitor if tolerated jaw exercises instruction up and ambulating inside the room Luke Lincoln MD Aug 05, 2016 08:49
[2016-08-05] MEDS: CHLORHEXIDINE GLUCONATE 0.12% 15 ML CUP SWISH-SPIT SCH ×2 (08:56→17:28)
[2016-08-05] MEDS: DOCUSATE SODIUM 50 MG/SENNA 8.6 MG TAB PO SCH ×2 (08:56→19:57)
[2016-08-05] MEDS: SODIUM CHLORIDE 0.9% FLUSH 10 ML FLUSH IV FLUSH SCH ×2 (08:57→19:57)
[2016-08-05 12:00] VITALS: BP 117/82; PULSE 63; RESP 19; TEMP 97.2; O2SAT 98
[2016-08-05] MEDS: ONDANSETRON HCL 4 MG/2 ML VIAL IV PRN (13:34)
[2016-08-05] MEDS: MORPHINE SULFATE 4 MG/ML INJ IV PUSH PRN (13:35)
[2016-08-05 16:00] VITALS: BP 115/77; PULSE 58; RESP 17; TEMP 98; O2SAT 96
[2016-08-05 20:29] VITALS: BP 149/94; PULSE 88; RESP 18; TEMP 98.1; O2SAT 94
--- NOTE | 2016-08-05 23:19 | MP ---
cc: GABBIEKADE DMD DATE OF SURGERY 08/03/16 PREOPERATIVE DIAGNOSIS Decayed tooth number 19, also left neck multi space infection/abscess involving the submandibular, mesenteric and sublingual region on the left side. POSTOPERATIVE DIAGNOSIS Decayed tooth number 19, also left neck multi space infection/abscess involving the submandibular, mesenteric and sublingual region on the left side. PROCEDURE Extraction of tooth #19. Incision and drainage of the left neck multispace infections and also examination under anesthesia. ANESTHESIA Anesthesia is going to be general, also 2% lidocaine with 1:100,000 epinephrine, approximately 6 cc, 0.5% Marcaine with 1:200,000 epi x3 cc at the end of the procedure. SURGEON DR. Mccann DOCUMENT CONTROLLER Pavan Yarbrough. COMPLICATIONS None. SPECIMEN Pus that was sent for microbiology. ESTIMATED BLOOD LOSS Approximately 20 cc. DRAINS Itz drain quarter-inch times four, two intraorally and two through to the neck and also one #12 Red Steffen drain times one, going from the neck into the mouth. DISPOSITION The patient tolerated the procedure, extubated, taken to the PACU. INDICATIONS FOR PROCEDURE This is a 30-year-old female with a longstanding history of tooth number #19 that has been broken down and decayed. She began to have pain and discomfort on the left jaw and put on antibiotics and discharged home and had seen her dentist. She was scheduled for extraction tomorrow but apparently she woke up this morning, got severely swollen. She has difficulty opening her mouth and pain. She has a left neck multispace infection/abscess involving the left submandibular, mesenteric, sublingual regions. Tooth #19 is decayed and broken. In order to restore proper form and function it is necessary the patient undergo the above listed procedures. Benefits, risks, indication of the procedure, procedure in detail and the options of no treatment including alternatives were discussed with this patient. Not limited to any postop pain, infection, bleeding, damage to the adjacent teeth, soft tissue, hard tissue, anesthesia complications, recurrence of infection, further surgeries as required, numbness, all questions and concerns were addressed. Consent is signed in the chart. PROCEDURE IN DETAILS FOLLOWS The patient was met perioperatively. The left side of the face was marked. Taken to the operating room number 10, put on table in supine position. She underwent glide scope intubation. No airway issues noted at the time. Eyes were taped shut. All pressure points were padded. At this time a time-out was taken to identify the patient, the side of the procedure, surgeon all were in agreement. The patient was prepped with Betadine solution. I went to sink to scrub, came back wearing the sterile attire. The patient was draped in normal sterile fashion. Bite block was gently placed on the right side of the mouth. Back of the throat was suctioned. Moistened Ray-John used as a throat pack. Mouth was now irrigated with Peridex solution. 2% lidocaine with 100,000 epinephrine was injected on the left side of the neck where it felt the greatest area of firmness and edema. And then also 2% lidocaine with 1:100,000 epinephrine was injected into the ____ block and long buccal around tooth number 19 region. The needle was changed. Once this was done examination under anesthesia again shows tooth number 19 severely decayed and broken. On the lingual aspect posterior of the mandible starting from 19 all the down towards the angle I could feel some kind of fluctuance and softness into that side. No gross elevation of floor of the mouth noted. No deviation of the uvula noted. A 15 blade was used to make a low circular release around tooth number 19. Periosteal elevator was used to reflect the flap. Elevator forceps was used to gently extract tooth number 19. Once this was done site was curetted. I could see granulation tissue attached to the tooth number 19. In fact, it was nice and clean and curetted out. Attention was given to the lingual aspect of the mandible. On the left side. We used a periosteal elevator starting from tooth number 19, went inferiorly to the inferior border of the mandible and as it proceeded posteriorly all this pus just poured out over to that site. Sent two cultures at this point with a lot of cruddy stuff. No more pus is noted. Again, I went down on the buccal aspect, the lateral aspect of that mandible, went down to the inferior border of the mandible, subperiosteal, all the down to the angle of the mandible. No pus at that place noted. Attention was now diverted to the left side of the neck. The neck has become softer. Three stab incision was made, one towards the posterior aspect of the mandible, one right in the center and one to the anterior lingual sublingual region. Starting from the center went up with a hemostat, blunt dissection straight up medially, laterally, inferiorly, superiorly. Some drainage came out of that site. A lot of fluid that irrigated from intraorally previously was coming out the site. I then took the hemostat went straight up the lingual aspect of the mandible, came out of the lingual of tooth #19 site. At this point I proceeded to make little holes on the 12 Red Rubber drain so that I can irrigate it and I was placed into that site, communicating from the center portion of the mandible near the submandibular region straight up to the lingual of number 19. And then I proceeded to put two quarter-inch Kosse drains towards near the posterior and then in the center part of the mandible. Note that prior to this I did again dissect with the hemostat and no pus was encountered. Finally, intraorally two quarter-inch Kosse drains were again ___ on the lingual aspect of the mandible, on the lateral aspect of the mandible. All these drains were tied in with 2-0 silk suture. All the drains were irrigated with saline solution. Note that prior to placement of the drains again intraorally the mouth and in through the neck was all irrigated saline solution and Peridex. Once this was done 0.5% Marcaine with 1:100,000 epinephrine was injected again intraorally. Back of throat was suctioned. Throat pack was removed. Bite block was removed. Good hemostasis is noted. Back of throat was suctioned. No purulence noted. No edema noted. Finally outside 4x4 gauze was placed and clean dressing was placed on the outside. The patient tolerated the procedure well. Significant decrease in the left neck edema that is noted. The patient will be taken to the ICU for monitoring this evening. All sponge, needle counts all accounted for. No complications noted, extubated, taken to the PACU. Kade Mccann DMD [employer] PRESENTATION ASSOCIATE/EO /8:06 PM /10:53 PM
[2016-08-06 00:28] VITALS: BP 111/61; PULSE 65; RESP 18; TEMP 97.6; O2SAT 98
[2016-08-06] MEDS: CHLORHEXIDINE GLUCONATE 2 % 1 PACK (2 CLOTHS) TOP SCH (04:00)
[2016-08-06] MEDS: DEXT 5%-NACL 0.9% 1000 ML INJ 1,000 ML IV SCH ×2 (05:09→16:30)
[2016-08-06] MEDS: CLINDAMYCIN INJ 600 MG in SODIUM CHLORIDE 0.9% INJ 100 ML IV SCH ×3 (05:10→21:43)
--- NOTE | 2016-08-06 07:04 | HHI.PR ---
Subjective Remarks POD 3 s/p extraction of tooth #19 I&D left neck multi space infection/abscess pt seen and examined, AAOx3, NAD. tolerating mechanically soft diet well, ambulating denies f/c/n/v/sob/difficulty breathing/difficulty swallowing reports feeling much better Objective Vital Signs Date Time Temp Pulse Resp B/P Pulse Ox O2 Delivery O2 Flow Rate FiO2 08/06/16 00:28 97.6 65 18 111/61 98 08/05/16 22:57 18 08/05/16 20:29 98.1 88 18 149/94 94 08/05/16 17:36 21 08/05/16 16:00 98.0 58 17 115/77 96 08/05/16 12:00 97.2 63 19 117/82 98 08/05/16 08:00 98 21 08/05/16 08:00 97.5 67 18 118/77 97 08/05/16 07:40 97 Room Air I/O 08/05/16 08/05/16 08/05/16 08/06/16 08/06/16 08/06/16 07:00 15:00 23:00 07:00 15:00 23:00 Intake Total 1225 ml 940 ml 603 ml 680 ml Balance 1225 ml 940 ml 603 ml 680 ml Intake Oral 360 ml 650 ml 480 ml 480 ml IV Total 865 ml 290 ml 123 ml 200 ml # Voids 2 2 2 1 # Bowel Movements 0 Result Diagram: 08/04/16 0358 08/04/16 0358 Objective Remarks continued decrease in left neck/facial edema trach midline, neck softer decreased tenderness intraorally, significant increase in mouth opening no elevation fom tongue, no deviation of uvula no pus noted neck drain in place x 1, no drainage noted, dressing in place afebrile GRAM STAIN Final 08/04/16 MODERATE WBC'S HEAVY MIXED ELLA WITH NO PREDOMINANT MORPHOLOGY WOUND CULTURE Final 08/05/16 MODERATE GROWTH NORMAL ORAL ELLA NO ANAEROBES ISOLATED WOUND CULTURE Preliminary (changed) 08/04/16 RARE GROWTH ALPHA STREPTOCOCCUS SPECIES - FURTHER ID TO FOLLOW Assessment and Plan Assessment and Plan pod 3 s/p extraction tooth #19 and I&D left neck multi space infection/abscess improved from yesterday continue abx micro GRAM STAIN GRAM STAIN Final 08/04/16 MODERATE WBC'S HEAVY MIXED ELLA WITH NO PREDOMINANT MORPHOLOGY WOUND CULTURE Final 08/05/16-902 MODERATE GROWTH NORMAL ORAL ELLA NO ANAEROBES ISOLATED WOUND CULTURE Preliminary (changed) 08/04/16-1324 RARE GROWTH ALPHA STREPTOCOCCUS SPECIES - FURTHER ID TO FOLLOW removed red prasanna neck drain, no drains remaining continue mechanically soft diet, jaw opening exercise. plan for d/c tomorrow Hema Mccnan DMD Aug 06, 2016 07:04
[2016-08-06 08:00] VITALS: BP 128/89; PULSE 56; RESP 17; TEMP 97.6; O2SAT 99
[2016-08-06] MEDS: CHLORHEXIDINE GLUCONATE 0.12% 15 ML CUP SWISH-SPIT SCH ×2 (08:26→18:00)
[2016-08-06] MEDS: ACETAMINOPHEN 325MG/HYDROcodone 7.5MG/15ML UDC PO PRN ×2 (08:26→14:36)
[2016-08-06] MEDS: SODIUM CHLORIDE 0.9% FLUSH 10 ML FLUSH IV FLUSH SCH ×2 (08:27→19:41)
[2016-08-06] MEDS: DOCUSATE SODIUM 50 MG/SENNA 8.6 MG TAB PO SCH ×2 (08:27→19:40)
--- NOTE | 2016-08-06 10:11 | HHI.PR ---
Subjective Remarks no fever/no chills more mouth opening, no difficulty swallowing still feels "a little sore" no diarrhea- actually + constipation- per patient chronic Objective Vitals Vital Signs Date Time Temp Pulse Resp B/P Pulse Ox O2 Delivery O2 Flow Rate FiO2 08/06/16 08:00 97.6 56 17 128/89 99 08/06/16 00:28 97.6 65 18 111/61 98 08/05/16 22:57 18 08/05/16 20:29 98.1 88 18 149/94 94 08/05/16 17:36 21 08/05/16 16:00 98.0 58 17 115/77 96 08/05/16 12:00 97.2 63 19 117/82 98 I/O 08/05/16 08/05/16 08/05/16 08/06/16 08/06/16 08/06/16 07:00 15:00 23:00 07:00 15:00 23:00 Intake Total 1225 ml 940 ml 603 ml 680 ml Balance 1225 ml 940 ml 603 ml 680 ml Intake Oral 360 ml 650 ml 480 ml 480 ml IV Total 865 ml 290 ml 123 ml 200 ml # Voids 2 2 2 1 # Bowel Movements 0 Result Diagram: 08/04/16 0358 08/04/16 0358 Imaging Last Impressions Neck CT 08/03/16 1252 Signed Impressions: Service Date/Time: Wednesday, August 03, 2016 14:39 - CONCLUSION: Inflammatory changes on the left as described above. Site of origin may be the submandibular gland. I do not see an obvious dental abscess. Amor Doherty MD FACR Objective Remarks awake and alert still with some induration left submandibular area, jawline is more pronounced, decreased swelling lungs clear regular rhythm abdomen soft, nontender extremities no edema Procedures 08/04- I and D left submandibular abscess and tooth extraction A/P Assessment and Plan 30-year-old female presenting with tachycardia and low-grade fever and leukocytosis Sepsis secondary to left mandibular/submandibular abscess secondary to infected tooth #19 and I and D Dr. Mccann ff closely along with us on IV clindamycin. 600 mg IV q 8 prn pain meds diet advance to soft mechanical diet- tolerating well jaw exercises instructions up and ambulating inside the room DC planning- hopefully tomorrow - d/w Dr. Mccann stool softeners Luke Turcios MD Aug 06, 2016 10:11
[2016-08-06] MEDS ORDERED: DOCUSATE SODIUM 50 MG/SENNA 8.6 MG TAB PO ONE (10:15)
[2016-08-06 11:21] VITALS: O2SAT 98
[2016-08-06 12:00] VITALS: BP 126/87; PULSE 53; RESP 16; TEMP 98.3; O2SAT 98
[2016-08-06 16:00] VITALS: BP 135/91; PULSE 83; RESP 18; TEMP 96.2; O2SAT 99
[2016-08-06 20:00] VITALS: BP 141/83; PULSE 58; RESP 17; TEMP 98.7; O2SAT 97
[2016-08-07 00:27] VITALS: BP 118/76; PULSE 54; RESP 17; TEMP 97.8; O2SAT 97
[2016-08-07] MEDS: DEXT 5%-NACL 0.9% 1000 ML INJ 1,000 ML IV SCH (01:23)
[2016-08-07] MEDS: CHLORHEXIDINE GLUCONATE 2 % 1 PACK (2 CLOTHS) TOP SCH (03:34)
[2016-08-07] MEDS: CLINDAMYCIN INJ 600 MG in SODIUM CHLORIDE 0.9% INJ 100 ML IV SCH (05:41)
--- NOTE | 2016-08-07 07:49 | HHI.PR ---
Subjective Remarks POD 4 s/p extraction of tooth #19 I&D left neck multi space infection/abscess pt seen and examined, AAOx3, NAD. tolerating mechanically soft diet well, ambulating denies f/c/n/v/sob/difficulty breathing/difficulty swallowing reports feeling much better, reports feeling better sensation inside mouth due to swelling decreasing Objective Vital Signs Date Time Temp Pulse Resp B/P Pulse Ox O2 Delivery O2 Flow Rate FiO2 08/07/16 07:00 Room Air 08/07/16 00:27 97.8 54 17 118/76 97 08/06/16 20:00 98.7 58 17 141/83 97 08/06/16 16:00 96.2 83 18 135/91 99 08/06/16 12:00 98.3 53 16 126/87 98 08/06/16 11:21 98 21 08/06/16 08:00 97.6 56 17 128/89 99 I/O 08/06/16 08/06/16 08/06/16 08/07/16 08/07/16 08/07/16 06:59 14:59 22:59 06:59 14:59 22:59 Intake Total 680 ml 500 ml 280 ml 560 ml Balance 680 ml 500 ml 280 ml 560 ml Intake Oral 480 ml 500 ml 280 ml 360 ml IV Total 200 ml 200 ml # Voids 1 9 2 1 # Bowel Movements 1 1 Result Diagram: 08/04/16 0358 08/04/16 0358 Objective Remarks continued decrease in left neck/facial edema, dressing in place, no pus noted trach midline, neck softer decreased tenderness intraorally, significant increase in mouth opening no elevation fom tongue, no deviation of uvula no pus noted afebrile GRAM STAIN Final 08/04/16 MODERATE WBC'S HEAVY MIXED ELLA WITH NO PREDOMINANT MORPHOLOGY WOUND CULTURE Final 08/05/16 MODERATE GROWTH NORMAL ORAL ELLA NO ANAEROBES ISOLATED WOUND CULTURE Preliminary (changed) 08/04/16 RARE GROWTH ALPHA STREPTOCOCCUS SPECIES - FURTHER ID TO FOLLOW Assessment and Plan Assessment and Plan pod 4 s/p extraction tooth #19 and I&D left neck multi space infection/abscess improved from yesterday continue abx micro GRAM STAIN GRAM STAIN Final 08/04/16 MODERATE WBC'S HEAVY MIXED ELLA WITH NO PREDOMINANT MORPHOLOGY WOUND CULTURE Final 08/05/16 MODERATE GROWTH NORMAL ORAL ELLA NO ANAEROBES ISOLATED WOUND CULTURE Preliminary (changed) 08/04/161325 RARE GROWTH ALPHA STREPTOCOCCUS SPECIES - FURTHER ID TO FOLLOW ok to d/c to home from [facility] standpoint f/up dr mccann 1 week [phone] advance to regular diet as tolerated warm compress left face/neck region 20 min on 20 min off continue jaw opening exercises Hema Mccann DMD Aug 07, 2016 07:49
[2016-08-07 08:00] VITALS: BP 122/85; PULSE 72; RESP 18; TEMP 98.6; O2SAT 99
[2016-08-07] MEDS: CHLORHEXIDINE GLUCONATE 0.12% 15 ML CUP SWISH-SPIT SCH (08:03)
[2016-08-07] MEDS: DOCUSATE SODIUM 50 MG/SENNA 8.6 MG TAB PO SCH (08:03)
[2016-08-07] MEDS: SODIUM CHLORIDE 0.9% FLUSH 10 ML FLUSH IV FLUSH SCH (08:11)
--- NOTE | 2016-08-07 08:26 | HHI.PR ---
Subjective Remarks patient feeling much better no difficulty swallowing better mouth opening no fever or chills Objective Vitals Vital Signs Date Time Temp Pulse Resp B/P Pulse Ox O2 Delivery O2 Flow Rate FiO2 08/07/16 07:00 Room Air 08/07/16 00:27 97.8 54 17 118/76 97 08/06/16 20:00 98.7 58 17 141/83 97 08/06/16 16:00 96.2 83 18 135/91 99 08/06/16 12:00 98.3 53 16 126/87 98 08/06/16 11:21 98 21 I/O 08/06/16 08/06/16 08/06/16 08/07/16 08/07/16 08/07/16 07:00 15:00 23:00 07:00 15:00 23:00 Intake Total 680 ml 500 ml 280 ml 560 ml Balance 680 ml 500 ml 280 ml 560 ml Intake Oral 480 ml 500 ml 280 ml 360 ml IV Total 200 ml 200 ml # Voids 1 9 2 1 # Bowel Movements 1 1 Result Diagram: 08/04/16 0358 08/04/16 0358 Imaging Last Impressions Neck CT 08/03/16 1252 Signed Impressions: Service Date/Time: Wednesday, August 03, 2016 14:39 - CONCLUSION: Inflammatory changes on the left as described above. Site of origin may be the submandibular gland. I do not see an obvious dental abscess. Amor Doherty MD FACR Objective Remarks awake and alert still with some induration left submandibular area, jawline is more pronounced, decreased swelling, more mouth opening lungs clear regular rhythm abdomen soft, nontender extremities no edema Procedures 08/04- I and D left submandibular abscess and tooth extraction A/P Assessment and Plan 30-year-old female presenting with tachycardia and low-grade fever and leukocytosis Sepsis secondary to left mandibular/submandibular abscess secondary to infected tooth #19 and I and D Dr. Mccann ff closely along with us- cleared for DC- OP ff up in 1 week on IV clindamycin. - change to po clindamycin 450 mg po q 6 prn pain meds diet advance to soft mechanical diet- tolerating well jaw exercises instructions up and ambulating inside the room DC home today Diet - advance as tolerated- mechanical soft activity as tolerated. jaw exercises Medication- clindamycin 450 mg po q6 prn pain meds OP ff up with Dr. mccann in 1 week PCP ff up in 3-5 days Luke Lincoln MD Aug 07, 2016 08:26
[2016-08-07] MEDS ORDERED: CLIN1CAP5 PO ×2 (08:32→08:35)
[2016-08-07] MEDS ORDERED: HYDR1SOL6 PO (08:34)
[2016-08-07] MEDS ORDERED: CHLO.12%30 SWISH-SPIT (08:34)
== END 2016-08-07 10:52 | disposition home or self-care (01) | DRG 872 ==
LOC: NEPE 12:40 → NEDA 16:27 → N03B 21:59 → N07A 08-04 12:19
PROVIDERS: ADMIT Internal Medicine; ATTEND Internal Medicine
PROC: 0CDXXZ0 Extraction of Lower Tooth, Single, External Approach (ICD-10-PCS; 2016-08-03)
PROC: 0C9 Mouth and Throat, Drainage (ICD-10-PCS; principal; 2016-08-03 18:34)
DX: A41.9 Sepsis, unspecified organism (principal); K12.2 Cellulitis and abscess of mouth; K04.7 Periapical abscess without sinus; K02.9 Dental caries, unspecified
CPT/HCPCS: 70491; 80048; 80053; 83605; 83735; 84100; 84703; 85025; 85610; 85652; 85730; 86140; 87015; 87040; 87070; 87102; 87116; 87205; 87206; 87641; 94150; 96365; 96375; J1040; J1100; J1885; J2250; J2270; J2405; J2710; J2930; J3010; J7030; J7042; J7120; Q9967